=== PATIENT | male | born 1990 | race Caucasian/White ===

== ENCOUNTER 2021-04-16 09:26 | Emergency (ER) | payer OTHER ==
[~2021-04-16] VITALS: Ht 175.3 cm; Wt 80.4 kg
[2021-04-16 09:26] VITALS: BP 129/75
[2021-04-16] MEDS ORDERED: FLUORESCEIN 1MG EYE STRIP. OD ONE (10:15)
[2021-04-16] MEDS ORDERED: TETRACAINE 0.5% OPHTH SOLUTION 4ML BOTTLE. OD ONE (10:15)
[2021-04-16] MEDS ORDERED: KETOROLAC TROMETHAMINE 0.5% OPHTH SOLUTION BOTTLE. OD ONE (10:30)
[2021-04-16] MEDS ORDERED: CIPROFLOXACIN 0.3% OPHTH SOLUTION 2.5ML BOTTLE. OD ONE (10:30)
[2021-04-16] MEDS ORDERED: CYCLOPENTOLATE 1% OPTH SOLUTION 2ML BOTTLE. OD ONE (10:45)
--- NOTE | 2021-04-16 10:49 | PHYS DOC ---
Past History Past Surgical History: No Surgical History Alcohol Use: Occasionally General Adult EDM: Chief Complaint: EYE PROBLEMS HPI: HPI: Patient is a 30-year-old male coming in for pain to his right thigh. Patient states that last night he was poked in the eye and the pain is gotten worse. Complaining of tearing and difficulty opening his eye. Does not wear contacts or glasses. Last tetanus 1 year ago Review of Systems: Review of Systems: All other systems within normal limits except for as noted in the HPI Current Medications: Current Meds: Current Medications Medications (Trade) Dose Ordered Sig/Caleb Start Time Stop Time Status Last Admin Dose Admin Ciprofloxacin 2 drop 1X ONCE 04/16/21 10:30 04/16/21 10:31 DC Cyclopentolate HCl (Cyclogyl) 1 drop 1X ONCE 04/16/21 10:45 04/16/21 10:46 Fluorescein Sodium (Ful-Leatha 1mg) 1 strip 1X ONCE 04/16/21 10:15 04/16/21 10:17 DC Ketorolac Tromethamine (Acular) 1 drop 1X ONCE 04/16/21 10:30 04/16/21 10:31 DC Tetracaine HCl (Tetracaine) 1 drop 1X ONCE 04/16/21 10:15 04/16/21 10:17 DC Allergies: Allergies: Allergies Coded Allergies Type Severity Reaction Last Updated Verified No Known Drug Allergies 04/16/21 No Physical Exam: PE: Constitutional: Well developed, well nourished, no acute distress, non-toxic appearance. [] HENT: Normocephalic, atraumatic, bilateral external ears normal, nose normal. [] Eyes: PERRLA, conjunctiva normal, no discharge. Extraocular is intact, pupils 3 mm, pain relieved with tetracaine, viewed with fluorescein, abrasion to cornea at 6 o'clock position, does not involve the iris, generalized injection of conjunctiva [] Neck: No rigidity, supple, no stridor. [] Cardiovascular: Regular rate and rhythm, brisk cap refill [] Lungs & Thorax: Non labored symmetric respirations, no tachypnea or respiratory distress [] Abdomen: Soft, nondistended. Skin: Warm, dry, no erythema, no rash. [] Back: Unremarkable Extremities: No deformities, range of motion grossly intact, no lower extremity edema [] Neurologic: Alert and oriented X 3, no focal deficits noted. [] Psychologic: Affect normal, judgement normal, mood normal. [] Current Patient Data: Vital Signs: Vital Signs Date Time Temp Pulse Resp B/P (MAP) Pulse Ox O2 Delivery O2 Flow Rate FiO2 04/16/21 09:26 90 18 129/75 (93) 100 Room Air EKG: EKG: [] Radiology/Procedures: Radiology/Procedures: [] Heart Score: C/O Chest Pain: No Risk Factors: Risk Factors: DM, Current or recent (<one month) smoker, HTN, HLP, family history of CAD, obesity. Risk Scores: Score 0 - 3: 2.5% MACE over next 6 weeks - Discharge Home Score 4 - 6: 20.3% MACE over next 6 weeks - Admit for Clinical Observation Score 7 - 10: 72.7% MACE over next 6 weeks - Early Invasive Strategies Course & Med Decision Making: Course & Med Decision Making Pertinent Labs and Imaging studies reviewed. (See chart for details) [] Dragon Disclaimer: Dragon Disclaimer: This electronic medical record was generated, in whole or in part, using a voice recognition dictation system. Departure Departure: Impression: Primary Impression: Corneal abrasion, right Disposition: HOME / SELF CARE / HOMELESS Condition: STABLE Referrals: JOE KOHLER DO Patient Instructions: Eye - Corneal Abrasion Additional Instructions: Ciprofloxacin eyedrops: 2 drops in right eye every 6 hours for 5 days For pain use ketorolac, 1 drop every 6 hours, and cyclopentolate, 1 drop every 6 hours as needed Call for follow-up appointment with ophthalmology on Sunday STEPHANIE CERVANTES MD Apr 16, 2021 10:49
== END 2021-04-16 11:25 | disposition home or self-care (01) ==
LOC: ER 09:26
DX: S05.01XA Injury of conjunctiva and corneal abrasion without foreign body, right eye, initial encounter (principal); X58.XXXA Exposure to other specified factors, initial encounter; Y93.89 Activity, other specified; Y92.89 Other specified places as the place of occurrence of the external cause; Y99.8 Other external cause status
CPT/HCPCS: 99284